=== PATIENT | male | born 1950 | race Caucasian/White ===

== ENCOUNTER 2024-07-28 16:42 | Emergency (ER) | payer OTHER ==
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
[2024-07-28 16:47] VITALS: RESP 18
[2024-07-28] MEDS: SODIUM CHLORIDE 0.9% 1,000 ML IV STA (17:20)
[2024-07-28 17:22] LABS: Basophils # (A) 0.1 k/uL (0-0.2); Basophils % (A) 1 %; Eosinophils # (A) 0.4 k/uL (0-0.7); Eosinophils % (A) 4 %; HCT 47.2 % (39.0-53.0); HGB 15.2 gm/dL (13.0-17.5); Lymphocytes % (A) 36 %; MCH 31.1 pg (25.0-35.0); MCHC 32.1 g/dL (31.0-37.0); Mean Platelet Volume 7.4; Monocytes # (A) 0.4 k/uL (0-1.0); Monocytes % (A) 5 %; Neutrophils # (A) 4.4 k/uL (1.3-7.7); Neutrophils % (A) 51 %; Platelet Count 306 k/uL (150-450); RBC 4.87 m/uL (4.30-5.90); RDW 12.7 % (11.5-15.5); WBC 8.5 k/uL (3.8-10.6)
[2024-07-28 17:33] LABS: African American GFR (CKD) >90 (>60 ml/min/1.73 sqM); Anion Gap 5 mmol/L; Blood Urea Nitrogen 17 mg/dL (9-20); Calcium 9.3 mg/dL (8.4-10.2); Carbon Dioxide 28 mmol/L (22-30); Chloride 107 mmol/L (98-107); Glucose 94 mg/dL (74-99); Non-African American GFR(CKD) 87 (>60 ml/min/1.73 sqM); Potassium 4.2 mmol/L (3.5-5.1); Sodium 140 mmol/L (137-145)
[2024-07-28 17:33] LABS: Appearance,Urine Clear (Clear); Bilirubin,Urine Negative (Negative); Blood,Urine Negative (Negative); Color,Urine Colorless; Glucose,Urine (UA) Negative (Negative); Ketones,Urine Negative (Negative); Leukocyte Esterase,Urine Negative (Negative); Nitrite,Urine Negative (Negative); PH, Urine 5.5 (5.0-8.0); Protein,Urine Negative (Negative); Specific Gravity,Urine 1.004 (1.001-1.035); Urobilinogen,Urine <2.0 mg/dL (<2.0)
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
[2024-07-28 17:34] LABS: ALT 54 U/L (4-49); AST 51 U/L (17-59); Albumin 4.2 g/dL (3.5-5.0); Alkaline Phosphatase 52 U/L (38-126); Magnesium 2.2 mg/dL (1.6-2.3); Total Bilirubin 0.5 mg/dL (0.2-1.3); Total Protein 6.8 g/dL (6.3-8.2)
[2024-07-28 17:36] LABS: Alcohol 94 mg/dL
[2024-07-28 17:43] LABS: Partial Thromboplastin Time 24.1 sec (22.0-30.0); Prothrombin Time 11.2 sec (10.0-12.5)
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
[2024-07-28 18:23] VITALS: BP 106/79; PULSE 92; TEMP 98.1
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
== END 2024-07-28 19:15 | disposition home or self-care (01) ==
LOC: EC 16:42
DX: R10.9 Unspecified abdominal pain (principal); V49.40XA Driver injured in collision with unspecified motor vehicles in traffic accident, initial encounter; Y92.410 Unspecified street and highway as the place of occurrence of the external cause
CPT/HCPCS: 36415; 93005; 85379; 80053; 83735; 84484; 85025; 85610; 85730; 81003; 80320; 72170; 71046; 72125; 70450; 71275; 74177; 99285; 96360; Q9967 ×2

== ENCOUNTER → 2024-10-19 | Outpatient (CLI) | payer OTHER ==
--- NOTE | 2024-10-19 15:05 | US ---
EXAMINATION TYPE: US kidneys/renal and bladder DATE OF EXAM: 10/19/2024 COMPARISON: CT 07/28/2024 CLINICAL INDICATION: Male, 74 years old with history of N13.39 HYDRONEPHESIS; Hx BPH and HTN; Patient denies any other signs, symptoms, or relevant history TECHNIQUE: Grayscale imaging of the bilateral kidneys and urinary bladder: FINDINGS: EXAM MEASUREMENTS: Right Kidney: 11.2 x 4.6 x 4.7 cm Left Kidney: 10.7 x 6.9 x 5.3 cm Post Void Residual Volume: NA mL Right Kidney: wnl, no evidence for hydronephrosis, mass or renal calculus. Left Kidney: ? Cyst vs prominent renal pyramid Bladder: WNL Bilateral Jets seen: No Normal Post Void Residual: NA There is no evidence for hydronephrosis at this point in time. No nephrolithiasis is seen. No gaby s are identified. The urinary bladder is anechoic. IMPRESSION: Cyst at the corticomedullary junction mid right kidney likely present. [facility], , 10/19/2024 3:03 PM
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
== END | disposition home or self-care (01) ==
LOC: RADUSWWP 13:53
PROVIDERS: ATTEND Family Medicine
DX: N13.39 Other hydronephrosis (principal); N40.0 Benign prostatic hyperplasia without lower urinary tract symptoms; I10 Essential (primary) hypertension
CPT/HCPCS: 76770; 93880

== ENCOUNTER → 2024-11-27 | Outpatient (CLI) | payer OTHER ==
--- NOTE | 2024-11-27 21:04 | CA ---
Transthoracic Echo Report Name: Gopal Shah Age: 74 Gender: M : 1950 Exam Date: 11/27/2024 14:05 Exam Location: [facility] Ht (in): 66 Wt (lb): 145 Ordering Physician: Miguel Lazo MD Attending/Referring Phys: Yoly Mckeon PAC Preflight Mechanic Nathan Banegas RDCS Procedure CPT: Indications: R55 SYNCOPE AND COLLAPSE Cardiac Hx: Technical Quality: Fair Contrast 1: Total Dose (mL): Contrast 2: Total Dose (mL): MEASUREMENTS (Male / Female) Normal Values 2D ECHO LV Diastolic Diameter PLAX 4.1 cm 4.2 - 5.9 / 3.9 - 5.3 cm LV Systolic Diameter PLAX 3.0 cm IVS Diastolic Thickness 1.1 cm 0.6 - 1.0 / 0.6 - 0.9 cm LVPW Diastolic Thickness 1.1 cm 0.6 - 1.0 / 0.6 - 0.9 cm LV Relative Wall Thickness 0.5 RV Internal Dim ED PLAX 3.1 cm LVOT Diameter 2.1 cm Aortic Root Diameter 3.2 cm LA Systolic Diameter LX 3.1 cm 3.0 - 4.0 / 2.7 - 3.8 cm LV Diastolic Volume MOD 4C 114.8 cm??? LV Systolic Volume MOD 4C 60.1 cm??? LV Ejection Fraction MOD 4C 47.7 % LV Cardiac Index MOD 4C 2243.1 cm???/min???m??? LV Diastolic Length 4C 9.2 cm LV Systolic Length 4C 7.6 cm LV Diastolic Volume MOD 2C 90.8 cm??? LV Systolic Volume MOD 2C 55.6 cm??? LV Ejection Fraction MOD 2C 38.8 % LV Cardiac Index MOD 2C 1444.3 cm???/min???m??? LV Diastolic Length 2C 8.3 cm LV Systolic Length 2C 7.4 cm LA Volume 46.4 cm??? 18 - 58 / 22 - 52 cm??? LA Volume Index 26.4 cm???/m??? 16 - 28 cm???/m??? DOPPLER MV Area PHT 3.0 cm??? Mitral E Point Velocity 45.9 cm/s Mitral A Point Velocity 64.2 cm/s Mitral E to A Ratio 0.7 MV Deceleration Time 254.3 ms FINDINGS Left Ventricle Left ventricular ejection fraction is estimated at 40-45 %. Mild concentric left ventricular hypertrophy. Left ventricular cavity size normal. Basal inferoseptal hypokinesis. Right Ventricle Normal right ventricular size and function. Unable to estimate the right ventricular systolic pressure. Right Atrium Normal right atrial size. Left Atrium Normal left atrial size. Mitral Valve Mitral annular calcification. No mitral stenosis. Trace mitral regurgitation. Aortic Valve Aortic valve not well visualized. No aortic valve stenosis or regurgitation. Tricuspid Valve Structurally normal tricuspid valve. No tricuspid stenosis. Trace tricuspid regurgitation. Pulmonic Valve Pulmonic valve not well visualized. No pulmonic stenosis. No pulmonic regurgitation. Pericardium No pericardial effusion. Aorta Aortic annulus normal. CONCLUSIONS Left ventricular ejection fraction is estimated at 40-45 %. Basal inferoseptal hypokinesis. Mild concentric left ventricular hypertrophy. Normal right ventricular size and function. No significant valvular dysfunction Previewed by: Dr Viral Srinivasan (Electronically Signed) Final Date: 27 November 2024 21:03
== END | disposition home or self-care (01) ==
LOC: RADECHMAIN 13:55
PROVIDERS: ATTEND General Practice
DX: I07.1 Rheumatic tricuspid insufficiency (principal)
CPT/HCPCS: 93306